=== PATIENT | female | born 1955 | race Caucasian/White ===

== ENCOUNTER 2023-03-01 18:14 | Emergency (ER) | payer MEDICARE, OTHER ==
[~2023-03-01] VITALS: Ht 175.3 cm; Wt 54.4 kg
--- NOTE | 2023-03-01 18:50 | NUR ---
RECEIVED PT67 YRS FEMALFROM HOME CAME HOME C/O V.BLEEDING STRTED AT [address] VAGNALE BLEEING
--- NOTE | 2023-03-01 19:00 | NUR ---
Female service electrician accompanied female patient for (PELVIC EXAMINE AND V. BLEEDING ).
--- NOTE | 2023-03-01 19:20 | NUR ---
CALLED DR ORDONEZ FOR OB CONSULT
[2023-03-01] MEDS ORDERED: IV NS 0.9% 1,000 ML BAG IV ONE (19:30)
--- NOTE | 2023-03-01 19:45 | NUR ---
HAND OFF MANOLO VAZQUEZ
--- NOTE | 2023-03-01 19:49 | NUR ---
CALLED ELIEZER MILLER AWAITING CALL BACK FROM
[2023-03-01 19:50] LABS: BASOPHILS % (AUTO) 0.9 % (0.0-2.0); EOSINOPHILS % (AUTO) 2.5 % (0.0-6.0); HEMATOCRIT 35 % (33-45); HEMOGLOBIN 11.8 g/dL (11.5-14.8); LYMPHOCYTES # (AUTO) 2.9 K/uL (0.8-4.8); LYMPHOCYTES % (AUTO) 54.5 % (20.0-44.0); MEAN CORPUSCULAR HGB CONC 33 g/dl (31.0-36.0); MEAN CORPUSCULAR VOLUME 99 fL (82-100); MONOCYTES # (AUTO) 0.4 K/uL (0.1-1.30); NEUTROPHILS # (AUTO) 1.9 K/uL (1.8-8.9); NEUTROPHILS % (AUTO) 35.1 % (43.0-81.0); PLATELET COUNT (AUTO) 210 K/uL (150-450); RED BLOOD CELL COUNT(AUTO) 3.57 MIL/uL (4.0-5.2); WHITE BLOOD COUNT (AUTO) 5.3 K/uL (4.3-11.0)
[2023-03-01 20:03] LABS: CREATININE 0.8 mg/dL (0.6-1.3); POTASSIUM 3.9 mmol/L (3.5-5.1)
--- NOTE | 2023-03-01 20:05 | NUR ---
RECEIVED CALL FROM DR CHRISTOPHER MARTINS, WILL CALL BACK WHEN LABS RESULTED
--- NOTE | 2023-03-01 20:16 | NUR ---
Brandon frazier in EDM - 03/01/23 at 2017 by YVETTE [address] CALL FROM DR CHRISTOPHER MARTINS, WILL CALL BACK WHEN LABS RESULTED
--- NOTE | 2023-03-01 20:16 | NUR ---
[facility] CALL BACK
--- NOTE | 2023-03-01 21:26 | NUR ---
UPDATED PATIENT OF PLAN OF CARE
--- NOTE | 2023-03-01 21:26 | NUR ---
COVID SWAB DONE AND SENT TO LAB
--- NOTE | 2023-03-01 22:11 | NUR ---
[facility], TRANSFER INFO FOLLOWS: [facility], , ACCEPTING Oliver KAPOOR, BLS TRANSPORT AT 2300 BY [facility]
--- NOTE | 2023-03-01 22:21 | NUR ---
REPORT GIVEN TO NATHANIEL NOGUERA RN OF [facility]
[2023-03-01 22:57] VITALS: BP 129/72
== END 2023-03-01 23:26 | disposition short-term general hospital (02) ==
LOC: ER 18:20
DX: S31.41XA Laceration without foreign body of vagina and vulva, initial encounter (principal); Z20.822 Contact with and (suspected) exposure to COVID-19; X58.XXXA Exposure to other specified factors, initial encounter; Y93.89 Activity, other specified; Y92.89 Other specified places as the place of occurrence of the external cause; Y99.8 Other external cause status
CPT/HCPCS: 99285; 96360; 87426; 85025; 80048; 36415; 85730; J7030; A6403; C9803